=== PATIENT | female | born 1955 | race Caucasian/White ===

== ENCOUNTER 2018-12-29 08:27 | Day surgery (SDC) | payer OTHER ==
[~2018-12-29] VITALS: Ht 167.6 cm; Wt 94.8 kg
[~2018-12-29 08:27] MED LIST: ACETAMINOPHEN1 EACH PO; DAILY MULTIPLE1 EACH PO; SLEEP AID25 M1 PO; VITAMIN C100 MG PO
--- NOTE | 2018-12-29 10:18 | NUR ---
12/29/18 Gato8 Clare Wilson 1015-PATIENT ARRIVED TO PACU ON 3L NC PLACED ON 2L. RR EVEN. PATIENT AWAKE DROWSY DENIES PAIN OR NAUSEA. DOZES BACK TO SLEEP. LAYING LEFT LATERAL. IVF INFUSING
--- NOTE | 2018-12-29 11:24 | NUR ---
HAS A LITTLE BLURRY VISION TO WAIT A LITTLE LONGER FOR DC
--- NOTE | 2018-12-29 12:19 | NUR ---
FRIEND HERE TO TAKE PT HOME. VISION HAS CLEARED.
--- NOTE | 2018-12-30 08:17 | OR ---
[facility] [address], [place] [address] Signed DATE OF OPERATION: 12/29/2018 SURGEON: Marjorie Everett MD PREOPERATIVE DIAGNOSIS: Screening. POSTOPERATIVE DIAGNOSIS: Unremarkable colonoscopy. PROCEDURE: Colonoscopy without biopsy. ESTIMATED BLOOD LOSS: None. 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 She had a negative screening colonoscopy at age 52 while she was back in [place]. She currently has no lower GI complaints. There is no family history of colon cancer or polyps. I gave Lennie a pamphlet on colonoscopy in the office. We reviewed the nature of the test along with its risks including, but not limited to, gas, bloating, crampy abdominal pain, bleeding, perforation requiring surgery, and missed diagnosis. We also discussed the need for IV conscious sedation. She had expressed her understanding and wished to proceed. PROCEDURE NOTE: Lennie was taken into our endoscopy suite and placed in the left lateral decubitus position. She was given a total of 7 mg of Versed and 125 mcg of fentanyl to cover the case. A digital rectal exam was performed and this was unremarkable. The adult colonoscope was introduced and advanced all around into the cecum under direct visualization of the camera without difficulty. She required just a little abdominal compression and some additional sedation. Her prep was good. We took pictures for photodocumentation. We could easily see the cecum and the ileocecal valve. The scope was slowly withdrawn. We found no pathology throughout the entire colon or rectum. Upon retroflexion of the scope, there was no additional pathology noted above the anal canal. After this, the gas was suctioned out and the colonoscope removed. Lennie tolerated the procedure quite well. RECOMMENDATIONS: Electronically Signed By: MARJORIE EVERETT MD 12/30/18 0817 PATIENT NAME: LENNIE PRYOR OPERATIVE REPORT DATE OF : 59 REPORT #: [id number] PHYSICIAN: MARJORIE EVERETT MD PCP: CORNELIA NIETO PA-C REPORT IS CONFIDENTIAL AND NOT TO BE RELEASED WITHOUT AUTHORIZATION [address] [address] Signed Lennie can follow up in 10 years for a repeat screening colonoscopy. MD TAD Cota/CONNORL /[id number] cc: MD Cornelia Cota PA-C Copies: MARJORIE EVERETT MD, CHLOE K PA-C ~ Electronically Signed By: MARJORIE EVERETT MD 12/30/18 0817 PATIENT NAME: LENNIE PRYOR OPERATIVE REPORT DATE OF : 59 REPORT #: [id number] PHYSICIAN: MARJORIE EVERETT MD PCP: CORNELIA NIETO PA-C REPORT IS CONFIDENTIAL AND NOT TO BE RELEASED WITHOUT AUTHORIZATION
== END 2018-12-29 12:15 | disposition home or self-care (01) ==
LOC: OPS 08:27 → DS 08:27 → OPS 09:45
PROVIDERS: Colon & Rectal Surgery
PROC: 0DJD8ZZ Inspection of Lower Intestinal Tract, Via Natural or Artificial Opening Endoscopic (ICD-10-PCS; principal; 2018-12-29 09:45)
DX: Z12.11 Encounter for screening for malignant neoplasm of colon (principal); I10 Essential (primary) hypertension; E78.5 Hyperlipidemia, unspecified; E66.9 Obesity, unspecified; E55.9 Vitamin D deficiency, unspecified; Z98.890 Other specified postprocedural states; Z68.33 Body mass index [BMI] 33.0-33.9, adult; Z79.899 Other long term (current) drug therapy
CPT/HCPCS: 99153; G0500; J2250; J3010; J7120

== ENCOUNTER 2024-04-27 09:17 | Inpatient (IN) | payer MEDICARE, OTHER ==
[~2024-04-27] VITALS: Ht 167.6 cm; Wt 76.5 kg
[2024-04-27] MEDS ORDERED: ACETAMINOPHEN 500 MG TAB PO ONE (10:45)
[2024-04-27 11:16] LABS: BASOPHILS 1.3 % (0-2); EOSINOPHILS 0.9 % (0-6); HEMATOCRIT 44.9 % (35.0-50.0); HEMOGLOBIN 14.7 g/dL (12.0-18.0); MCH 30.8 (27-36); MCHC 32.9 g/dl (30-36); MCV 93.7 fl (81-99); MONOCYTES 9.7 % (0-12); NEUTROPHILS 72.1 % (39-80); PLATELET COUNT 185 K/uL (140-440); RBC 4.79 M/ul (4.3-5.7); RDW 13.2 (10.5-15.0)
[2024-04-27 11:32] LABS: ALBUMIN 3.7 g/dL (3.4-5.0); ALBUMIN/GLOBULIN RATIO 0.97 (1.1-2.4); ANION GAP 11.1 (7-21); BILIRUBIN, TOTAL 0.9 ng/dL (0.2-1.0); BUN/CREATININE RATIO 18.18 (6.0-28.6); CALCIUM 9.3 mg/dL (8.5-10.1); CREATININE, SERUM 0.77 mg/dL (0.55-1.02); POTASSIUM 4.1 mmol/L (3.5-5.1); PROTEIN, TOTAL 7.5 g/dL (6.4-8.2)
[2024-04-27] MEDS ORDERED: D5%-NACL 0.9% 20 KCL 1,000 ML IV SCH (11:45)
[2024-04-27] MEDS ORDERED: ondansetron HCL 4 MG/2 ML VIAL IV PRN (11:45)
[2024-04-27] MEDS ORDERED: HYDROmorphone HCL 1 MG/ML SYR IV PRN (11:45)
[2024-04-27] MEDS ORDERED: LIDOCAINE 2% VISCOUS 6 ML SYR TOP ONE (11:45)
[2024-04-27] MEDS ORDERED: LACTATED RINGER'S 1,000 ML IV SCH (11:45)
[2024-04-27] MEDS ORDERED: IBLOOD GLUCOSE TEST STRIP 1 EA TEST XX PRN (11:45)
--- NOTE | 2024-04-27 11:58 | NUR ---
UR CLINICAL REVIEW: 2MN MARIA, MEETS INPT FOR RIGHT HIP FRACTURE MEDICARE INPT 04/27/24 @ 1142 ORDER MATCHES REG NO AUTH REQUIRED PER MEDICARE RULES DC PLAN PENDING FURTHER EVAL.
[2024-04-27 13:20] VITALS: BP 124/76
--- NOTE | 2024-04-27 13:50 | NUR ---
NPO@midnight sign hung on the door. ROSE Vasques in room doing new patient intake.
[2024-04-27 15:21] VITALS: BP 124/76
--- NOTE | 2024-04-27 15:33 | NUR ---
PT ADMISSION COMPLETED. D5NS WITH 20KCL AT 125/HR STARTED. PT MEDICATED FOR PAIN. SO LEFT ROOM. PT INSTRUCTED ON PUREWICK, IV PUMP, IV SITE AND MEDICATIONS.
--- NOTE | 2024-04-27 16:22 | NUR ---
PT RESTING IN BED READING BOOK. NO C/O VOICED. IVF CONTINUE INFUSING AT 125/HR.
[2024-04-27 18:00] VITALS: BP 131/75
--- NOTE | 2024-04-27 18:13 | NUR ---
PT PLEASANT AND COOPERATIVE T/O SHIFT. IV INFUSING TO R HAND AT 125ML/HR. PT MEDICATED X 1 FOR PAIN. TOLERATING 100% OF DIET WITHOUT C/O. CMS REMAINS INTACT. PT ON BEDREST, PUREWICK IN PLACE AND CHANGED @ 1800. CALL TELLES IN REACH, BED IN LOW POSITION AND LOCKED, SIDERAILS UP X2
[2024-04-27 18:17] VITALS: BP 131/75
--- NOTE | 2024-04-27 18:26 | NUR ---
PT PLEASANT AND COOPERATIVE WITH CARE T/O SHIFT. PT DENIES PAIN. PT ASSIST X1 WITH FWW TO BRP. DRESSINGS TO LEFT HIP, WITH DRIED BLOOD OUTLINED. IVF INFUSING AT 75ML/HR TO R INNER FA IV SITE. PT TOLERATING PO DIET. PT TO BE NPO AFTER MIDNIGHT FOR OR IN THE AM. CALL TELLES IN REACH, BED IN LOW POSITION AND LOCKED. SIDERAILS UP X 2.
--- NOTE | 2024-04-27 18:43 | NUR ---
DR. MILLIGAN CALLED FOR PRE-OP ORDERS FOR LABS/IMAGING/ECG. NO ORDERS REC'D.
--- NOTE | 2024-04-27 19:28 | NUR ---
BEDSIDE REPORT RECEIVED FROM DAYSHIFT RN MARIBEL MIMS, pt AWAKE AND RESTING IN BED. ON RA, RR EVEN AND UNLABORED. NO DISTRESS OR CONCERNS VERBALIZED. PUREWICK IN PLACE. IV SITE WNL, FLUIDS INFUSING DIRECTED.
[2024-04-27 20:04] VITALS: BP 130/74
--- NOTE | 2024-04-27 20:08 | NUR ---
ASSESSMENT COMPLETE, VSS. pt REMAINS ON RA, RR EVEN AND UNLABORED. pt A/OX4. IV SITE FLUSHES AND HAS BRISK BLOOD RETURN NOTED, FLUIDS INFUSING AT 125MLS/HR, WNL. REPORTS PAIN IS TOLERABLE FOLLOWING PAIN MEDICATION ADMINISTRATION, RATES 4/10. DENIES NAUSEA, BOWEL TONES ACTIVE. CMS INTACT, pt DENIES NUMBNESS AND TINGLING. BLE SLIGHTLY COOL TO THE TOUCH, SIMILAR ON BOTH SIDES. COLOR PINK. NO ADDITIONAL NEEDS OR CONCERNS VERBALIZED, CALL LIGHT IN REACH. SLIGHT EDEMA NOTED TO RIGHT HIP, WITH FAINT BRUISE-NO CHANGE FROM START OF SHIFT.
--- NOTE | 2024-04-27 20:50 | NUR ---
DR MILLIGAN CALLED TO CLARIFY FLUID ORDERS. pt HAS MAINTENANCE FLUIDS INFUSING AT 125MLS/HR-D5NS W/ 20MEQ K+ AND ALSO HAS A ONE TIME BAG OF LR ORDERED, BUT NOT GIVEN-PER EMAR. SAME START TIME. TELEPHONE ORDER READ BACK FROM DR MILLIGAN TO CONTINUE WITH ORDERED D5NS W/ 20MEQ K+ ORDERED AND OKAY TO DC ONE TIME BAG OF LR-ORDER UPDATED, ALONG WITH ESTIMATOR LUMBERROSE ZHANG.
--- NOTE | 2024-04-27 22:51 | NUR ---
rounded on pt, pt awake and resting in bed. on ra, rr even and unlabored. rates pain 4-5/10-prn pain medication given-see emar. new bag iv fluids also hung and infusing as directed. no additional needs, call light in reach. ice pack offered to right hip, pt declined. pt educated pre-op instructions.
[2024-04-27 23:16] VITALS: BP 130/74
--- NOTE | 2024-04-27 23:43 | NUR ---
IN ROOM TO ROUND ON pt AND REASSESS PAIN-pt REPORTS PAIN IMPROVED AND DENIES ADDITIONAL NEEDS OR CONCERNS. CALL LIGHT IN REACH.
--- NOTE | 2024-04-27 23:52 | NUR ---
CIGARETTE FILTER INSPECTOR CLEANED UP EMISIS FROM PT, GAVE PT NEW GOWN AND SOME WATER TO SIP ON UNTIL MIDNIGHT.
[2024-04-28] VITALS (16 sets, daily range): BP systolic 107–152; BP diastolic 64–95
--- NOTE | 2024-04-28 | NUR ---
PRN ZOFRAN GIVEN FOR REPORTED NAUSEA, pt REPORTS AT SAME TIME pt BECAME WARM. NO ADDITIONAL NEEDS OR CONCERNS, CALL LIGHT IN REACH. IV SITE WNL.
--- NOTE | 2024-04-28 00:01 | NUR ---
pt MADE NPO AT THIS TIME.
--- NOTE | 2024-04-28 00:55 | NUR ---
rounded on pt, pt resting quietly in bed with eye mask in place-provided earlier in shift per pt request. rr even and unlabored, no distress noted. call light in reach.
--- NOTE | 2024-04-28 01:48 | NUR ---
pt continues to rest, eyes closed. on ra, rr even and unlabored. call light in reach.
--- NOTE | 2024-04-28 02:42 | NUR ---
ROUNDED ON pt, pt AWAKE. DISCUSSED POC PRIOR TO SURGERY-QUESTIONS ANSWERED. pt APPEARS CALM AND RELAXED. NO DISTRESS NOTED, DENIES NEEDS OR CONCERNS WHEN ASKED. IV SITE WNL, FLUIDS CONTINUE TO INFUSE DIRECTED.
--- NOTE | 2024-04-28 04:08 | NUR ---
rounded on pt, pt awake. marixa valdivia and marixa phillip in room for pre op [place]. call light in reach.
--- NOTE | 2024-04-28 04:13 | NUR ---
CALL LIGHT ANSWERED. PT NEEDED TO USE BATHROOM. THIS BACKPACKERS MANAGER PLACED PT ON FRACTURE BED URBINA AND INSTRUCTED PT TO CALL WHEN FINISHED. CALL LIGHT ANSWERED. PT HAD VOIDED. THIS CAN REMOVED BED URBINA. THIS BACKPACKERS MANAGER AND CODEY MORENO COMPLETED PT CHG [place] AND CHANGED PT BED LINENS, CHUCKS PAD, PUREWICK, GOWN AND ATTENDS. VITALS AND I&O OBTAINED AND DOCUMENTED. PT STATES NO FURTHER NEEDS AT THIS TIME. CALL LIGHT WITHIN REACH.
--- NOTE | 2024-04-28 04:57 | NUR ---
LR WITH STRAIGHT TUBING/EXT SET PRIMED AND HANGING ON IV POLE. IV SITE WNL, FLUIDS INFUSING DIRECTED. SCD'S ON EDGE OF BED. NO ADDITIONAL NEEDS OR CONCERNS VERBALIZED. FOCUSED ASSESSMENT COMPLETE, NO ACUTE CAHNGES.
--- NOTE | 2024-04-28 06:14 | NUR ---
pt off floor at this time, armin distribution operations supervisor at bedside. business consult to or meds given to sarkis funez. iv site wnl, saline locked.
[2024-04-28] MEDS ORDERED: KETAMINE in NS 50 MG/5 ML SYR ONE (06:42)
[2024-04-28] MEDS ORDERED: fentaNYL citrate 100 MCG/2 ML VIAL ONE (06:42)
[2024-04-28] MEDS ORDERED: MIDAZOLAM HCL 2 MG/2 ML VIAL ONE (06:42)
[2024-04-28] MEDS ORDERED: LIDOCAINE HCL 2% 5 ML SDV ONE (06:42)
[2024-04-28] MEDS ORDERED: propofoL 200 MG/20 ML VIAL ONE ×2 (06:42→06:51)
[2024-04-28] MEDS ORDERED: BUPIVACAINE 0.75% IN DEXTROSE 2 ML AMP ONE (06:44)
[2024-04-28] MEDS ORDERED: LIDOCAINE HCL 1% 5 ML SDV SUB-Q ONE (07:00)
[2024-04-28] MEDS ORDERED: TRANEXAMIC ACID IN NACL,ISO-OS 1,000 MG/100 ML PIGGYBACK IV SCH ×2 (07:00→10:00)
[2024-04-28] MEDS ORDERED: CEFAZOLIN SODIUM 2 GM/20 ML SYR IV SCH ×2 (07:00→15:00)
[2024-04-28] MEDS ORDERED: TRANEXAMIC ACID 2,000 MG in SODIUM CHLORIDE 0.9% 100 ML IV SCH (07:00)
[2024-04-28] MEDS ORDERED: DEXAMETHASONE SOD PHOS 4 MG/ML VIAL ONE (07:24)
[2024-04-28] MEDS ORDERED: ePHEDrine sulfate 50 MG/ML AMP ONE (07:31)
--- NOTE | 2024-04-28 07:31 | NUR ---
MORNING REPORT RECIEVED FROM ROSE WEISS. PT CURRENTLY IN SURGERY AND NOT IN ROOM. WAITING FOR PT ARRIVAL.
--- NOTE | 2024-04-28 07:35 | NUR ---
PT NOT AVAILABLE FOR VISIT. PROVIDED PRAYER.
[2024-04-28] MEDS ORDERED: INTRA-ARTICULAR ANALGESIC INJECTION XX SCH (07:45)
--- NOTE | 2024-04-28 08:12 | NUR ---
Patient taken to surgery at 0600.
[2024-04-28] MEDS ORDERED: KETOROLAC TROMETHAMINE 15 MG/ML VIAL IV PRN (09:00)
[2024-04-28] MEDS ORDERED: ondansetron HCL 4 MG/2 ML VIAL IV PRN (09:00)
[2024-04-28] MEDS ORDERED: OXYCODONE HCL 5 MG TAB PO PRN (09:00)
--- NOTE | 2024-04-28 09:05 | NUR ---
PT RETURNED FROM PACU VIA STRETCHER, PT WAS BROUGHT BY ROSE KELLOGG. PT AWAKE AND ALERT ON ROOM AIR, PT DID RECIEVE A SPINAL AT L2 AND COULD MOVE FOOT/TOES ON THE RIGHT SIDE, PT HAD NO FEELING YET IN THE LEFT FOOT. PT INCISION SITE HAS SUTURES, RAMSEY, AND COVERED WITH ACTICOAT DRESSING WITH NO CURRENT DRAINAGE. CRYOCUFF IN PLACE WITH SCDS ON BILAT LEGS. PT IS CURRENTLY EXPEREINCING NO PAIN, OR NAUSEA. PT ASSESMENT COMPLETED WITH STRONG BILAT PEDAL PULSES. PT HAS NO CURRENT CONCERNS AT THIS TIME AND CALL LIGHT WITH IN REACH.
--- NOTE | 2024-04-28 09:24 | NUR ---
CPOX PLACED PER RN REQ. 96% ON RA. PT DENIES ANY NEEDS AT THIS TIME, CALL LIGHT IN REACH
--- NOTE | 2024-04-28 09:25 | NUR ---
04/28/24 0925 Suleiman,Monisha 0860 PT ARRIVED TO PACU ON RA, PT ASLEEP AND WAKES TO TACTILE STIMULI. PT TALKING WITH SLURRED WORDS AND EASILY FALLS BACK TO SLEEP. VSS. 0843 MD AT BEDSIDE TALKING TO PT. PT MORE AWAKE AND TALKING TO MD, PT DENIES PAIN AND NAUSEA. CRYO CUFF PLACED AND PT UNABLE TO MOVE LEGS, SPINAL EDUCATION GIVEN. PLAN OF CARE DISCUSSED. 899 PT TRANSFERED TO FLOOR AND BED PLUGGED IN. PT CONTINUES TO DENY CONCERNS. 904 DRESSING CDI AND ROLLED TOWELS FOR HEEL PROTECTION IN PLACE. ALL QUESTIONS ANSWERED AND REPORT GIVEN.
--- NOTE | 2024-04-28 10:05 | NUR ---
PT ASSESMENT COMPLETE VSS. PT ALERT AND ORIENTED X4. PT LUNG SOUNDS ARE CLEAR WITH REGUALR CARDIAC RHYTHM SOUNDS. PT HAS COMPLETE FEELING IN HER RIGHT FOOT/LEG WITH STRONG PEDAL PULSES BILAT. PT IS STARTING TO BE ABLE TO FEEL HER LEFT FOOT THE SPINAL BLOCK WEARS OFF. PT IS NOT EXPEREIENCING ANY PAIN OR REPORTING NAUSEA. PT HAS NO OTHER CONCERNS AT THIS TIME CALL LIGHT WITHIN REACH.
--- NOTE | 2024-04-28 10:41 | OR ---
[facility] [address], [place] [address] Signed DATE OF OPERATION: 04/28/2024 SURGEON: Ovi Xiao MD PREOPERATIVE DIAGNOSIS: Femoral neck fracture, displaced, right. POSTOPERATIVE DIAGNOSIS: Femoral neck fracture, displaced, right. PROCEDURE PERFORMED: Right bipolar hemiarthroplasty. SOFTWARE ASSET MANAGEMENT ANALYST: Janice Campo PA-C. Janice was present and critical for all portions of procedure. ANESTHESIA: Spinal. BLOOD LOSS: 165 mL. IMPLANTS: Sheng Echo FX size 9 stem, +0 head and a 42 mm cup. BRIEF HISTORY: Lennie is a 68-year-old female, who was knocked down by her dog day before yesterday. She presented to the ER yesterday morning with continued hip pain, was found to have a displaced femoral neck fracture. Risks, benefits, and alternatives were discussed of surgery and she understood and wished to proceed. PROCEDURE IN DETAIL: Once consent was obtained, she was taken to the operating room. After adequate anesthesia, she was placed on the operating room table in the left lateral decubitus position. Axillary roll was placed. Downside pressure points were well padded. The right hip was then prepped and draped in the standard sterile fashion. The hip was approached through standard anterolateral approach. The skin incision was made, carried down to the IT band. IT band was divided longitudinally. The vastus lateralis was divided from the greater trochanter along the anterior margin of the femur distally. Electronically Signed By: OVI XIAO MD 04/28/24 1041 PATIENT NAME: LENNIE PRYOR OPERATIVE REPORT DATE OF : 59 REPORT #: [id number] PHYSICIAN: OVI XIAO MD PCP: RASHAAD NIETO PA-C REPORT IS CONFIDENTIAL AND NOT TO BE RELEASED WITHOUT AUTHORIZATION [facility] [address], [place] [address] Signed This was then subperiosteally elevated around to the level of the lesser trochanter. The gluteus minimus and capsule were then split from the trochanter to the acetabular rim and elevated. The femoral neck was then shortened with a saw to 1 fingerbreadth above the lesser trochanter. The napkin ring was removed. The femoral head was then removed. Periacetabular soft tissue was removed. The femoral head was then measured to 42 and a 42 trial was placed in the acetabulum, found to be satisfactory. Attention was then turned to the proximal femur. This was opened using [employer] cutter followed by the Sheng awl. It was then sequentially broached up to a 9, which was found to be well fitting. The 9 broach was left in position. The standard offset neck and a +0 42 construct was placed on it. With some difficulty initially, this was reduced. We did have to do a bit more releasing to get proper soft tissue tension. Once we got it reduced, leg lengths were found to be equal. She had excellent range of motion and no instability or impingement. The hip was then dislocated and the trials were removed. The final stem was then impacted until the collar was sitting down on the calcar. The bipolar head and a 20 mm head were then put together and placed on the trunnion after cleansing it. The hip was then reduced again taken through range of motion and found to be stable with good leg lengths. The wound was copiously irrigated with one bottle of Surgiphor followed by normal saline. The periarticular soft tissues were injected with 80 mL of ropivacaine and Toradol mixture. The capsule was then closed using #2 FiberWire. The vastus and IT band layers were closed independently using #2 Stratafix. The subcutaneous tissue was closed with 0 Stratafix and skin with pascual. Wound was dressed with an Acticoat-7 dressing and she was awakened taken to the recovery room in satisfactory condition. All sponge, needle, and instrument counts were correct. Ovi Xiao MD BA/MODL /[id number] Copies: ~ Electronically Signed By: OVI XIAO MD 04/28/24 1041 PATIENT NAME: LENNIE PRYOR OPERATIVE REPORT DATE OF : 59 REPORT #: [id number] PHYSICIAN: OVI XIAO MD PCP: RASHAAD NIETO PA-C REPORT IS CONFIDENTIAL AND NOT TO BE RELEASED WITHOUT AUTHORIZATION
--- NOTE | 2024-04-28 11:05 | NUR ---
PT LAYING IN BED, PT VSS, PT LUNG SOUNDS CLEAR THROUGHOUT. PT CMS INTACT ON BILAT LOWER EXTREMITIES. PT SURGICAL DRESSING CDI, WITH NO VISIABLE DRAINAGE. PT EXPRESSES SHE HAS NO PAIN OR NAUSEA AT THIS TIME.
--- NOTE | 2024-04-28 12:00 | NUR ---
VISITED DURING SPIRITUAL CARE ROUNDS. PT SUPPORTED BY LIFE PARTNER IN ROOM; BOTH IN OVERALL GOOD SPIRITS, NO IMMEDIATE NEEDS. BAKERY PRODUCTS CHECKER PROVIDED SUPPORTIVE PRESENCE, HOSPITALITY, PRAYER. PT AND PARTNER EXPRESSED GRATITUDE.
--- NOTE | 2024-04-28 12:05 | NUR ---
PT IN ROOM WITH PHYSICAL THERAPY. PT LAYING IN BED PT VSS AND CONTINUES TO HAVE CLEAR BREATH SOUNDS WITH NO SHORTNESS OF BREATH. PT CMS INTACT ON BILAT LOWER EXTREMITIES, SURGICAL DRESSING IS CDI WITH NO VISIBLE DRAINAGE OR SHADOWING. PT HAS NO REPORTS OF PAIN/NAUSEA. PT HAS NO CONERNS AT THIS TIME CALL LIGHT WITHIN REACH.
--- NOTE | 2024-04-28 13:29 | NUR ---
PT ASSISTED TO BR SBA W FWW. PT BACK TO CHAIR, LEG ELEVATED AND CRYO CUFF PLACED. PT NOW EATING MEAL. DENIES ANY NEEDS AT THIS TIME, CALL LIGHT IN REACH
--- NOTE | 2024-04-28 13:32 | NUR ---
PT HAD AN EPISODE OF EMESIS 100ML. DISCUSSED WHEN ZOFRAN CAN BE GIVEN NEXT. PT COMPLIANT. GIVEN ALCOHOL SWAB PT STATES IT IS HELPING A BIT, BUT WOULD REQUEST THE ZOFRAN WHEN IT IS AVAILABLE TO GIVE.
--- NOTE | 2024-04-28 14:07 | NUR ---
IN TO ASSIST PT BACK TO BED VIA FWW. PT SBA, ABLE TO AMBULATE BACK TO BED WITH VERY LITTLE DIFFICULTY. FRESH ICE WATER BROUGHT, SCD'S AND CRYO MACHINE HOOKED BACK UP AND RUNNING. BED IN LOWEST POSITION, SIDE RAILS UP X 3. PT HAS CALL LIGHT IN HAND AND DENIES ANY FURTHER NEEDS AT THIS TIME.
[2024-04-28] MEDS ORDERED: ACETAMINOPHEN 500 MG TAB PO SCH (15:00)
[2024-04-28] MEDS ORDERED: GABAPENTIN 300 MG CAP PO SCH (15:00)
--- NOTE | 2024-04-28 15:50 | NUR ---
Spoke with pt and her partner. They deny needs. Updated I spoke with Dr. Xiao and most likely they will remain until Wednesday. Pt states she is delighted with this. No needs at this time.
--- NOTE | 2024-04-28 16:29 | NUR ---
Patient is awake and alert visiting with a friend. Cryocuff container was emptied and refilled with ice.
--- NOTE | 2024-04-28 17:49 | NUR ---
PT CURRENTLY IN BED WITCH CRYO CUFF IN PLACE WITH SMALL SEROSANG DRAINAGE ON THE RIGHT HIP SURGICAL DRESSING. PT HAS NO NAUSEA, OR PAIN AT THIS TIME, PT HAS CURRENT CONCERNS AT THIS TIME CALL LIGHT PRINCESS BA.
--- NOTE | 2024-04-28 18:30 | NUR ---
PT SITTING IN BED WITH FAMILY PRESENT AT BEDSIDE. PT STATES " SHE IS IN NO PAIN, AND NO NAUSEA". PT HAS CALL LIGHT WITHIN REACH AND NO CURRENT CONCERNS AT THIS TIME.
--- NOTE | 2024-04-28 19:16 | NUR ---
Patient is resting in bed with friends in the room visiting. Cryocuff was checked and refilled. Fresh ice water was given.
--- NOTE | 2024-04-28 19:35 | NUR ---
RECEIVED REPORT FROM CATHY & ROSE GAMBLE'S. PT RESTING IN BED, VISITING W/ FRIEND. DENIES ANY NEEDS OR CONCERNS CURRENTLY.
--- NOTE | 2024-04-28 19:54 | NUR ---
PT BACK FROM BATHROOM. PT ATTENDS CHANGED AND CPOX AND SCDS RECONNECTED. VITALS AND I&O OBTAINED AND DOCUMENTED. PT STATES NO FURTHER NEEDS AT THIS TIME. CRYO CUFF FILLED WITH ICE. CALL LIGHT WITHIN REACH.
[2024-04-28] MEDS ORDERED: SENNOSIDES 1 TAB PO SCH (21:00)
--- NOTE | 2024-04-28 21:52 | EKG ---
[facility] [address] [facility] [address] [facility] [place], [place] [address] Signed Normal sinus rhythm Normal ECG No previous ECGs available Confirmed by Alban Camargo DO ([id number]) on 04/28/2024 9:52:06 PM Electronically Signed By: ALBAN CAMARGO DO 04/28/[id number] PATIENT NAME: KARI PRYOR Electrocardiogram DATE OF : 59 PHYSICIAN: ALBAN CAMARGO DO REPORT #: [id number] REPORT IS CONFIDENTIAL AND NOT TO BE RELEASED WITHOUT AUTHORIZATION
--- NOTE | 2024-04-28 22:45 | NUR ---
PT RESTING COMFORTABLE IN BED, VISITING W/ FRIEND AT BEDSIDE. VSS. HS MEDS ADMINISTERED PER EMAR. REPORTS RIGHT POST HIP PAIN 05/08, DECLINED NEED FOR PAIN MED AT THIS TIME. LSC, CPOX IN PLACE. HRR. BTA. LBM YESTERDAY 04/27. VOIDS WNL, WEARS DISPOSIBLE BRIEF FOR DRIBBLING. RIGHT HIP DRSG W/ SMALL AMT BLOODY DRNG-MARKED. CMS INTACT. RLE PLANTAR/DORSI MOD STRENGTH, STRAIGHT LEG LIFT MOD. CRYOCUFF IN PLACE. SCD'S IN PLACE. RH SL WNL. CALL LIGHT WITHIN REACH.
--- NOTE | 2024-04-28 22:54 | NUR ---
SLEEPING SOUNDLY, APPEARS COMFORTABLE. IV ATB ADMINISTERED PER EMAR.
[2024-04-29] VITALS (10 sets, daily range): BP systolic 115–147; BP diastolic 68–80
--- NOTE | 2024-04-29 00:03 | NUR ---
CALL LIGHT ANSWERED. PT NEEDED TO USE BATHROOM. WIRE CHIEF SBA WITH FWW TO BATHROOM. PT VOIDED AND ASSISTED BACK TO BED. CRYO CUFF PLACED ON HIP WITH PILLOW CASE BARRIER. PT WANTED A BREAK FROM SCDS. CPOX RECONNECTED. PT STATES NO FURTHER NEEDS AT THIS TIME. CALL LIGHT WITHIN REACH.
--- NOTE | 2024-04-29 00:54 | NUR ---
PT REPORTS RIGHT THIGH PAIN 06/05. PT WANTS TO AVOID PO PRN OXYCODONE RIGHT NOW R/T STOMACH UPSET IN THE PAST. PT MEDICATED W/ IV TORADOL.
--- NOTE | 2024-04-29 01:08 | NUR ---
CRYO CUFF REFILLED WITH ICE. VITALS AND I&O OBTAINED. PT STATES NO FURTHER NEEDS AT THIS TIME. CALL LIGHT WITHIN REACH.
--- NOTE | 2024-04-29 04:52 | NUR ---
PT SLEEPING SOUNDLY, APPEARS COMFORTABLE.
--- NOTE | 2024-04-29 05:27 | NUR ---
RESAW CARRIAGE OPERATOR OBTAINED VITALS AND I&O. CRYO CUFF REFILLED WITH ICE AND PT GIVEN FRESH ICE WATER. PT STATES NO FURTHER NEEDS AT THIS TIME. CALL LIGHT WITHIN REACH.
--- NOTE | 2024-04-29 06:30 | NUR ---
CALL LIGHT ANSWERED. PT NEEDED TO USE BATHROOM. DESIGN AND SALES CONSULTANT SBA TO BATHROOM. PT VOIDED AND BACK IN BED. CRYO CUFF REAPPLIED AND CPOX RECONNECTED. PT STATES NO FURTHER NEEDS AT THIS TIME. CALL LIGHT WITHIN REACH.
--- NOTE | 2024-04-29 07:33 | NUR ---
MORNING REPORT RECIEVED FROM ROSE SANTIZO. PT LAYING IN BED AWALE READING A BOOK. PT EXPRESSES THAT SHE HAS A SMALL AMOUNT OF PAIN IN THE RIGHT HIP BUT IT IS TOLLERABLE AT THE MOMENT. SURGICAL SITE IS CDI WITH NO NEW DRAINAGE. PT CALL LIGHT WTIHIN REACH.
[2024-04-29] MEDS ORDERED: Rivaroxaban 10 MG TAB PO SCH (08:00)
--- NOTE | 2024-04-29 08:43 | NUR ---
PT LAYING IN BED CRYO CUFF IN PLACE, AND ICE/WATER REPLACED. PT HAS CALL LIGHT WTIHIN REACH NO CONCERNS AT THIS TIME.
[2024-04-29] MEDS ORDERED: KETOROLAC TROMETHAMINE 10 MG TAB PO PRN (09:45)
--- NOTE | 2024-04-29 11:32 | NUR ---
PT CURRENTLY WORKING WITH PHYSICAL THERAPY. PT LOOKS TO BE TOLERATING IT WELL AND HAS NO EXPRESSED ANY INCREASED PAIN.
--- NOTE | 2024-04-29 12:04 | NUR ---
PT FINISHED WORKING WITH PHYSICAL THERAPY, PT DID STATE " SHE HAS A SMALL AMOUNT OF PAIN WHEN AMBULATING AND IT FEELS LIKE SORE MUSCLES BUT ISNT BAD". PT RETURNED TO BED AND HAS NO REQUESTS AT THIS TIME CALL LIGHT WITHIN REACH.
--- NOTE | 2024-04-29 13:09 | NUR ---
PT AMBULATED TO RESTROM 1 SBA, PT RETURNED TO BED WITH CRYO CUFF IN PLACE, SCDS, AND CPOX. PT HAS NO OTHER CONCERNS AT THIS TIME CALL LIGHT WITHIN REACH.
--- NOTE | 2024-04-29 14:43 | NUR ---
PT SITTING IN BED WITH FRINED ON ROOM AT BED SIDE, PT CRYO CUFF IN PLACE. NEW ICE PACK PLACED ON RIGHT THIGH WITH CLOTH BETWEEN SKIN AND ICE BARRIER. PT HAS CALL LIGHT IN REACH.
--- NOTE | 2024-04-29 15:27 | NUR ---
PT LAYING IN BED CPOX DISCONNECTED, DUE TO IT BEING 24HR FROM POST OP AND PT VVS. PT HAS CALL LIGHT IN REACH WITH NO CURRENT CONCERNS AT THIS TIME.
--- NOTE | 2024-04-29 16:42 | NUR ---
PT LAYING IN BED WITH COMPANY IN THE ROOM BEDSIDE, PT CRYO CUFF IN PLACE WITH ICE IN COOLER. PT HAS NO CONCERNS AT THIS TIME CALL LIGHT WITHIN REACH.
--- NOTE | 2024-04-29 18:16 | NUR ---
PT RESTING IN BED WITH FRIEND PRESENT IN ROOM, PT CRYO CUFF ICE FILLED. PT HAS CALL LIGHT WITHIN REACH AND NO OTHER CONCERNS AT THIS TIME.
--- NOTE | 2024-04-29 18:47 | NUR ---
PT ASSISTED TO RESTROOM, PT WAS SBA AND RETURNED TO BED WITH CRYOO CUFF IN PLACE AND AN ICE PACK OF THE RIGHT UPPER THIGH. PT REQUESTED TO TAKE A BREAK FROM SCDS, PT HEELS FLOATED WITH TOWELS. PT HAS NO OTHER NEEDS AT THIS TIME CALL LIGHT WTIHIN REACH.
--- NOTE | 2024-04-29 19:21 | NUR ---
shift report received from dayshift rn ira and carlton at bedside, pt awake and resting in bed, on ra. rr even and unlabored. no distress noted. small amount shadowing noted to distal portion of right hip dressing, no new from start of shift per shift report-will monitor. cyro cuff in place. call light in reach, no additional needs or concerns verbalized.
--- NOTE | 2024-04-29 20:38 | NUR ---
assessment complete, scheduled meds given-see emar. pt a/ox4, rates pain 4/10-cyro cuff and scd's in place to ble. cyrocuff recently replaced with ice. cms intact, pt denies numbness and tingling. few spots of shadowing noted to right hip dressing along with shadowing on distal portion of dressing, no change from start of shift. bilat pedal and radial pulses strong and equal, skin warm, pink, and dry. pt up to void via sba with fww in bathroom, no void at this time. will monitor. pt back in bed, no additional needs or concerns, call light in reach.
--- NOTE | 2024-04-29 22:30 | NUR ---
ROUNDED ON pt, pt RESTING IN BED WITH EYES CLOSED. ON RA, RR EVEN AND UNLABORED. NO DISTRESS NOTED. CYROCUFF IN PLACE. CALL LIGHT IN REACH.
[2024-04-30] VITALS (10 sets, daily range): BP systolic 119–140; BP diastolic 68–90
--- NOTE | 2024-04-30 00:05 | NUR ---
ROUNDED ON pt, pt IN BED WITH EYES CLOSED, EYE MASK IN PLACE, ON RA-RR EVEN AND UNLABORED. CYRO CUFF OFF AT THIS TIME, NO CHANGE IN ACTICOAT DRESSING-PRN PAIN MEDICATION OFFERED TO pt-pt DECLINES NEED AT THIS TIME. CALL LIGHT IN REACH, NO ADDITIONAL NEEDS OR CONCERNS VERBALIZED. pt DENEIS NEED TO VOID WHEN ASKED.
--- NOTE | 2024-04-30 00:56 | NUR ---
CALL LIGHT ANSWERED, pt UP SBA WITH FWW TO BATHROOM AND VOIDED 500MLS, THEN AMBULATED THE HALLWAY X2 LAPS, VERY STEADY ON FEET. pt BACK IN BED, SCD'S, RACHEL HOSE, AND BILATERAL HEELS ELEVATED. NEW ICE TO CYRO CUFF AND BACK TO RIGHT HIP WITH LINEN BARRIER TO PROTECT SKIN. PRN PAIN MEDICATION GIVEN-SEE EMAR. CALL LIGHT IN REACH, FOCUSED ASSESSMENT COMPLETE, NO ACUTE CHANGES.
--- NOTE | 2024-04-30 02:45 | NUR ---
ROUNDED ON pt, pt RESTING IN BED, EYES CLOSED. RR EVEN AND UNLABORED. NO DISTRESS NOTED. CALL LIGHT IN REACH.
--- NOTE | 2024-04-30 04:11 | NUR ---
pt RESTING IN BED, CYROCUFF IN PLACE. RR EVEN AND UNLABORED, NO DISTRESS NOTED. CALL LIGHT IN REACH.
--- NOTE | 2024-04-30 06:24 | NUR ---
rounded on pt, pt awake and resting in bed. cyro cuff ice replaced. pt requesting to ambulate, marixa valdivia in room. call light in reach.
--- NOTE | 2024-04-30 06:43 | NUR ---
STEEL RULE DIE MAKER WALKED WITH PT. PT DID TWO LARGE LOOPS AROUND THE FLOOR AND WENT BACK TO BED. SCD'S RE-APPLIED. STEEL RULE DIE MAKER LEFT PATIENT WITH CALL LIGHT WITHIN REACH.
--- NOTE | 2024-04-30 07:29 | NUR ---
PT SHIFT REPORT RECIEVED FROM ROSE WEISS. PT WAS AWAKE AND LAYING IN BED, PT SURGICAL SITE ON RIGHT HIP HAD NO NEW SHADOWING/DRAINAGE. PT REPORTED NO PAIN OR DISCOMFORT, PT CRYO CUFF IN PLACE. PT HAS NO CONCERNS AT THIS TIME CALL LIGHT WITHIN REACH.
--- NOTE | 2024-04-30 09:52 | NUR ---
PT USED CALL LIGHT CORRECTLY AND NEEDED TO USE REST ROOM. PT SBA FWW PT RETURNED FROM RESTROOM AND DID HAVE A BOWEL MOVMENT X1 SOFT/FORMED. PT RETURNED TO BED WITH NO CONCERNS AT THIS TIME CALL LIGHT WITHIN REACH.
--- NOTE | 2024-04-30 11:26 | NUR ---
PT CURRENTLY WORKING WITH PHYSICAL THERAPY IN PHYSICAL THERAPY ROOM.
--- NOTE | 2024-04-30 12:38 | NUR ---
PHYSICAL THERAPY REPORTED THAT PT DID VERY WELL TODAY, PHYSICAL THERAPIST HAS NO CONCERNS AND PT TOLERATED WELL, PT RETURNED TO BED,. PT CALL LIGHT WITHIN REACH.
--- NOTE | 2024-04-30 14:25 | NUR ---
PT AMBULATED TO THE RESTROOM SBA. PT THEN RETURNED TO CHAIR, CRYO CUFF COOLER REPLENISHED AND CRYO CUFF IN PLACE. PT HAS NO CONCERNS AT THIS TIME AND CALL LIGHT PRINCESS BA.
--- NOTE | 2024-04-30 15:49 | NUR ---
PT SITTING UP IN BED WITH CRYO CUFF IN PLACE, PT WALKED LAPS AROUND THE MED/SURG FLOOR, AND TOLERATED STEPS WELL. PT HAS CALL LIGHT WITHIN REACH AND HAS NO CONERNS AT THIS TIME.
--- NOTE | 2024-04-30 16:39 | NUR ---
PT IS IN BED READING AT THE MOMENT PT HAS CRYO CUFF IN PLACE WITH CALL LIGHT IN REACH. PT HAS NO CURRENT CONCERNS AT THIS TIME.
--- NOTE | 2024-04-30 17:50 | NUR ---
PT LAYING GIN BED WITH CRYO CUFF IN PLACE, PT HAS CALL LIGHT IN REACH AND NO CURRENT CONCERNS AT THIS TIME.
--- NOTE | 2024-04-30 18:48 | NUR ---
PT IN BED WITH CRYO CUFF IN PLACE, PT ACTICOAT DRESSING HAS NO NEW SHADOWING AT THIS TIME. PT HAS NO CONCERNS CALL LIGHT IN REACH.
--- NOTE | 2024-04-30 19:36 | NUR ---
Patient awake in bed, alert and oriented x4, no acute distress. Dressing to right hip has dry serosang drainage noted. Patient reports good pain control at this time. Ice in place at this time over dressing. Patient denies needs at this time. Call light within reach.
--- NOTE | 2024-05-01 02:40 | NUR ---
Patient reports 4/10 right hip pain. Admin toradol 10mg po at this time. Patient denies further needs.
--- NOTE | 2024-05-01 05:30 | NUR ---
PT AMBULATED HALLS WITH TEA LEAF READER. NOW IN BED
[2024-05-01 05:34] VITALS: BP 136/79
[2024-05-01 06:05] VITALS: BP 136/79
--- NOTE | 2024-05-01 07:37 | NUR ---
PT MORNING REPORT RECIEVED FROM ROSE PAZ. PT LAYING IN BED ALERT AND ORIENTED. PT DOES NOT HAVE ANY CONCERNS AT THIS TIME, CRYO CUFF IN PLACE AND ICE IN COOLER. PT CALL LIGHT IN REACH.
--- NOTE | 2024-05-01 08:08 | NUR ---
Patient is sitting up in bed eating breakfast. Fresh ice water was given.
--- NOTE | 2024-05-01 09:00 | NUR ---
Pt ambulating in the voss. Denies needs. Plans on dc to home today with Life partner.
[2024-05-01 09:29] VITALS: BP 141/88
--- NOTE | 2024-05-01 10:02 | NUR ---
PHYSICAL THERAPY WORKED WITH PT ON AMBULATING AND STAIRS. PT TOLERATED WELL, PHYSICAL THERAPY SAID SHE CAN GO HOME IF MD MILLIGAN CLEARS HER.
--- NOTE | 2024-05-01 10:25 | NUR ---
In to see patient who is low semi-da silva in bed, on RA, no distress noted. Patient is [id number], answers questions appropriately. IMM letter explained, questions answered. Patient signs letter without further questions. Feels her care has been "Very good", and stating "I am very happy with my care here."
[2024-05-01 11:16] VITALS: BP 141/88
[2024-05-01] MEDS ORDERED: ACETAMINOPHEN500 MG PO (11:19)
[2024-05-01] MEDS ORDERED: OXYCODONE HCL5 MG PO (11:19)
[2024-05-01] MEDS ORDERED: GABAPENTIN300 MG PO (11:20)
[2024-05-01] MEDS ORDERED: ASPIRIN EC325 MG PO (11:20)
--- NOTE | 2024-05-01 11:24 | NUR ---
Patient was SBA to take a shower. Once setup and patient in the shower chair, patient was able to shower independently. Clean gown, underwear, and socks put on. Patient combed hair and returned to bed once done.
--- NOTE | 2024-05-01 11:31 | NUR ---
VISITED DURING SPIRITUAL CARE ROUNDS. PT SUPPORTED BY LIFE PARTNER IN ROOM, ALL IN OVERALL GOOD SPIRITS, NO IMMEDIATE NEEDS. TRACTOR TRAILER MOVING VAN DRIVER PROVIDED SUPPORTIVE PRESENCE, HOSPITALITY, ANTICIPATORY GUIDANCE, PRAYER, FACILITATED INTERACTION WITH THERAPY ANIMAL. PT EXPRESSED GRATITUDE, HOPE.
--- NOTE | 2024-05-01 12:05 | NUR ---
PT IS SITTING UP IN BED EATING LUNCH PT WAS INFORMED THAT THEY WILL BE DISCHARGED TODAY AND THAT THEY CAN SET UP A TIME TO BE PICKED UP SOON THEY WOULD LIKE. PT DC INFO GIVEN AND PT WAS EDUCATED ON HOME CARE. PT HAS NO CONCERNS AT THIS TIME CALL LIGHT IN REACH.
[2024-05-01 12:57] VITALS: BP 131/88
--- NOTE | 2024-05-01 12:59 | NUR ---
PT IS IN ROOM WITH CAPITAL PROJECT ENGINEER GETTING DRESSED AND READY FOR DISCHARGE. PT WILL BE PICKED UP BY PARTNER. PT HAS NO CONCERNS AT THIS TIME.
== END 2024-05-01 13:00 | disposition home or self-care (01) | DRG 522 ==
LOC: ED 09:17 → MS 11:42
PROVIDERS: Emergency Medicine; ADMIT Specialist; ATTEND Specialist
PROC: 0SRR0JZ Replacement of Right Hip Joint, Femoral Surface with Synthetic Substitute, Open Approach (ICD-10-PCS; principal; 2024-04-28 07:00)
DX: S72.001A Fracture of unspecified part of neck of right femur, initial encounter for closed fracture (principal); I10 Essential (primary) hypertension; Z79.899 Other long term (current) drug therapy; W18.30XA Fall on same level, unspecified, initial encounter
CPT/HCPCS: 01214; 36415; 72170; 73502; 80053; 85025; 93005; 93010; 97116; 97161; 97165; 97530; 97535; A9270; C1776; J0690; J1100; J1171; J1885; J2003; J2250; J2405; J2704; J3010; J3480; J3490

== ENCOUNTER 2024-09-07 19:25 | Emergency (ER) | payer OTHER, MEDICARE ==
[~2024-09-07] VITALS: Ht 167.6 cm; Wt 74.5 kg
[~2024-09-07 19:25] MED LIST changes: +ACETAMINOPHEN500 MG PO; +ASPIRIN EC325 MG PO; +GABAPENTIN300 MG PO; +OXYCODONE HCL5 MG PO
[2024-09-07 22:45] VITALS: BP 138/88
== END 2024-09-07 22:40 | disposition home or self-care (01) ==
LOC: ED 19:25
DX: S06.0X0A Concussion without loss of consciousness, initial encounter (principal); S00.11XA Contusion of right eyelid and periocular area, initial encounter; W54.1XXA Struck by dog, initial encounter; E04.1 Nontoxic single thyroid nodule
CPT/HCPCS: 70450; 72125; 99283-25